=== PATIENT | male | born 1935 | race Hispanic/Latino ===

== ENCOUNTER → 2020-04-12 | Day surgery (SDC) | payer MEDICARE, OTHER ==
[2020-04-04 15:28] LABS: BASOPHILS % 0.2 % (0.0-1.0); EOSINOPHILS % 0.2 % (0.0-6.0); HEMOGLOBIN 11.5 g/dL (14.0-18.0); LYMPHOCYTES # (AUTO) 8.5 (1.0-3.2); LYMPHOCYTES % 63.8 % (18.0-39.1); MEAN CORPUSCULAR HEMOGLOBIN 28.7 pg (28-32); MEAN CORPUSCULAR HGB CONC 31.9 g/dL (31-35); MEAN CORPUSCULAR VOLUME 89.8 fL (81-99); MONOCYTES # (AUTO) 0.7 (0.2-0.8); MONOCYTES % 4.9 % (4.4-11.3); NEUTROPHILS # (AUTO) 4.1 (2.1-6.9); NEUTROPHILS % 30.8 % (38.7-80.0); PLATELET COUNT 148 x10e3/uL (140-360); RED BLOOD COUNT 4.01 x10e6/uL (4.3-5.7); RED CELL DISTRIBUTION WIDTH 12.1 % (11.7-14.4)
[~2020-04-12] MED LIST: ASPIRIN81 MG PO; GABAPENTIN100 MG PO; LIDOCAINE HCL 2% LOCAL INJ 5 ML SDV VIAL INJ ONE; MICARDIS20 MG PO; PANTOPRAZOLE SO40 MG PO; PRANDIN1 MG PO; PROPOFOL IV EMULSION 10 MG/ML 20 ML VIAL ONE; RAYALDEE30 MCG PO; SIMVASTATIN20 MG PO; TERAZOSIN HCL5 MG PO; TURMERIC538 MG PO; ULTRAM 50MG50 MG PO; VIT D; VIT E PO
[2020-04-12 13:00] VITALS: BP 141/73
== END | disposition home or self-care (01) ==
LOC: OR 09:15
PROVIDERS: ATTEND Internal Medicine Gastroenterology
DX: K63.5 Polyp of colon (principal); K57.30 Diverticulosis of large intestine without perforation or abscess without bleeding; K64.8 Other hemorrhoids; K29.70 Gastritis, unspecified, without bleeding; K44.9 Diaphragmatic hernia without obstruction or gangrene; K21.00 Gastro-esophageal reflux disease with esophagitis, without bleeding; D12.0 Benign neoplasm of cecum; R13.10 Dysphagia, unspecified; Z71.3 Dietary counseling and surveillance; E66.3 Overweight; I10 Essential (primary) hypertension; Z68.25 Body mass index [BMI] 25.0-25.9, adult; Z01.810 Encounter for preprocedural cardiovascular examination; Z01.812 Encounter for preprocedural laboratory examination; Z11.59 Encounter for screening for other viral diseases; E11.9 Type 2 diabetes mellitus without complications; Z79.82 Long term (current) use of aspirin
CPT/HCPCS: 36415 ×2; 43239; 45385; 82948; 85025; 88305; 88312; 93005; J2001; J2704; U0002 ×2

== ENCOUNTER 2022-04-08 06:16 | Observation (INO) | payer MEDICARE, OTHER ==
[2022-04-05 10:57] LABS: INR 0.92; PROTHROMBIN TIME 13.2 seconds (11.9-14.5)
[2022-04-05 10:58] LABS: PARTIAL THROMBOPLASTIN TIME 28.1 seconds (23.8-35.5)
[~2022-04-08 06:16] MED LIST changes: +AMLODIPINE BESY10 MG PO; +CRANBERRY200 MG PO; +FEROSUL325 MG PO; +FISH OIL 1,0001 EAC7 PO; -LIDOCAINE HCL 2% LOCAL INJ 5 ML SDV VIAL INJ ONE; -PROPOFOL IV EMULSION 10 MG/ML 20 ML VIAL ONE; +VITAMIN D350 MCG PO
[2022-04-08] MEDS ORDERED: CELECOXIB 200 MG CAP ONE (07:45)
[2022-04-08] MEDS ORDERED: GABAPENTIN 300 MG CAP ONE (07:45)
[2022-04-08] MEDS ORDERED: DEXAMETHASONE SOD PHOS 10 MG/1 ML VIAL ONE (07:45)
[2022-04-08] MEDS ORDERED: ROPIVACAINE 246.25 MG, EPINEPHRINE HCL 1:1000 1ML 0.5 MG, CLONIDINE HCL 0.08 MG, KETORO... INJ ONE ×5 (08:00)
[2022-04-08] MEDS ORDERED: TRANEXAMIC ACID 20 ML ONE (08:53)
[2022-04-08] MEDS ORDERED: Vancomycin IV 1,000 MG ONE (08:53)
[2022-04-08] MEDS ORDERED: SODIUM CHLORIDE 0.9% 500ML 500 ML ONE (08:54)
[2022-04-08] MEDS ORDERED: HYDROCODONE/APAP 5MG-325MG TAB PO PRN (10:45)
[2022-04-08] MEDS ORDERED: HYDROCODONE/APAP 7.5MG-325MG 1 EA TAB PO PRN (10:45)
[2022-04-08] MEDS ORDERED: ONDANSETRON HCL INJ 2MG/ML 2ML 2 MG/ML VIAL IV PRN (10:45)
[2022-04-08] MEDS ORDERED: ACETAMINOPHEN 650 MG SUPP PR PRN (10:45)
[2022-04-08] MEDS ORDERED: DIPHENHYDRAMINE HCL INJ 50 MG/ML VIAL IV PRN (10:45)
[2022-04-08] MEDS ORDERED: DOCUSATE SODIUM 100 MG CAP PO PRN (10:45)
[2022-04-08] MEDS ORDERED: HYDROCODON-ACE1 EA12 PO (14:53)
[2022-04-08] MEDS ORDERED: SODIUM CHLORIDE 0.9% 1000ML 1,000 ML IV SCH (16:00)
[2022-04-08] MEDS ORDERED: FENTANYL CITRATE/PF 100MCG/2 ML INJ ONE (16:07)
[2022-04-08 17:00] VITALS: BP 108/46
[2022-04-08] MEDS ORDERED: CELECOXIB 100 MG CAP PO SCH (17:00)
[2022-04-08] MEDS ORDERED: ASPIRIN 325 MG TAB PO SCH (20:00)
[2022-04-08] MEDS ORDERED: ZOLPIDEM TARTRATE 5 MG TAB PO PRN (21:00)
[2022-04-09] MEDS ORDERED: ACETAMINOPHEN 1000 MG/100 ML IV PRN (10:45)
== END 2022-04-08 17:12 | disposition home health service (06) ==
LOC: OR 06:16 → PACU V 10:43
PROVIDERS: ADMIT Specialist; ATTEND Specialist
DX: M17.12 Unilateral primary osteoarthritis, left knee (principal); E11.9 Type 2 diabetes mellitus without complications; E78.00 Pure hypercholesterolemia, unspecified; I10 Essential (primary) hypertension; Z01.812 Encounter for preprocedural laboratory examination; Z20.822 Contact with and (suspected) exposure to COVID-19; Z79.82 Long term (current) use of aspirin
CPT/HCPCS: 0223U; 36415; 85610; 85730; 86850; 86900; 86920; G0378; J0171; J0690; J1100; J1885; J2795; J3010; J3370; J7040